=== PATIENT | female | born 1980 | race Caucasian/White ===

== ENCOUNTER 2022-06-01 10:49 | Emergency (ER) | payer OTHER ==
[~2022-06-01] VITALS: Ht 170.2 cm; Wt 81.8 kg
[2022-06-01] VITALS (12 sets, daily range): BP systolic 92–119; BP diastolic 60–87
[2022-06-01 11:53] LABS: BASO% 0.3 % (0-3); EOS% 2.1 % (0-8); HEMOGLOBIN 14.1 g/dl (12.0-16.0); IMMATURE GRANULOCYTES 0.2 % (0.0-5.0); LYMPH% 24.3 % (15-41); MEAN CELL VOLUME 94.8 fL CALC (80.0-100.0); MEAN CORPUSCULAR HGB 30.4 pG CALC (26.0-32.0); MONO% 7.5 % (2-13); NEUT# 5.66 thou/uL (2.00-7.15); NEUT% 65.6 % (42-76); RED BLOOD COUNT 4.64 mill/uL (4.20-5.60); RED CELL DISTRI WIDTH 12.9 % (11.5-15.5)
[2022-06-01 12:02] LABS: ALBUMIN 4.3 g/dL (3.2-5.0); ALKALINE PHOSPHATASE 72 u/l (38-126); ANION GAP 17 (6-22 (CALC)); BILIRUBIN, TOTAL 0.5 mg/dL (0.02-1.3); BUN 11 mg/dL (7-17); BUN/CREATININE RATIO 21 (12-20 (CALC)); CARBON DIOXIDE 25 mmol/l (22-30); CHLORIDE 99 mmol/l (95-108); CREATININE 0.5 mg/dL (0.5-1.0); GFR FOR AFR.AMER. > 60 ML/MIN (>=60 (CALC)); GFR OTHER RACES > 60 ML/MIN (>=60 (CALC)); LIPASE 48 u/l (23-300); POTASSIUM 3.3 mmol/l (3.5-5.1); SGOT/AST 33 u/l (14-36); SODIUM 137 mmol/l (137-146); TOTAL PROTEIN 7.5 g/dL (6.3-8.2)
[2022-06-01 15:34] LABS: URINE BILIRUBIN - DIPSTICK NEGATIVE (NEGATIVE); URINE BLOOD DIPSTICK LARGE (NEGATIVE); URINE COLOR YELLOW; URINE GLUCOSE - DIPSTICK NEGATIVE (NEGATIVE); URINE KETONE NEGATIVE (NEGATIVE); URINE LEUK ESTERASE NEGATIVE (NEGATIVE); URINE PROTEIN - DIPSTICK NEGATIVE (NEG-TRACE); URINE SPECIFIC GRAVITY 1.015; URINE UROBILINOGEN - DIPSTICK 0.2 E.U./dL (0.2)
[2022-06-01 15:36] LABS: URINE NITRITE - DIPSTICK NEGATIVE (Negative)
[2022-06-01 15:42] LABS: URINE SQUAMOUS EPITHELIAL CELL FEW EPI/hpf (0-FEW); URINE WBC 0-2 WBC/hpf (0-5)
[2022-06-01] MEDS ORDERED: METRONIDAZOLE500 MG PO (16:56)
--- NOTE | 2022-06-03 13:05 | NUR ---
Attempted to contact patient by phone. No answer, left message to return call. No address or additional contacts on file.
== END 2022-06-01 18:50 | disposition home or self-care (01) ==
LOC: ED 10:49
PROVIDERS: Nurse Practitioner
DX: N76.0 Acute vaginitis (principal); T19.2XXA Foreign body in vulva and vagina, initial encounter; F17.210 Nicotine dependence, cigarettes, uncomplicated; X58.XXXA Exposure to other specified factors, initial encounter; R82.5 Elevated urine levels of drugs, medicaments and biological substances

== ENCOUNTER 2022-08-11 07:45 | Emergency (ER) | payer OTHER ==
[~2022-08-11] VITALS: Ht 170.2 cm; Wt 77.0 kg
[~2022-08-11 07:45] MED LIST: METRONIDAZOLE500 MG PO
[2022-08-11 08:23] VITALS: BP 143/98
[2022-08-11 08:30] VITALS: BP 130/89
[2022-08-11] MEDS ORDERED: SUBOXONE1 MI1 SL (08:40)
[2022-08-11] MEDS ORDERED: XANAX2 MG PO (08:41)
[2022-08-11 08:45] VITALS: BP 127/82
[2022-08-11 09:00] VITALS: BP 126/82
[2022-08-11 09:16] VITALS: BP 151/103
[2022-08-11] MEDS ORDERED: CLINDAMYCIN300 M1 PO (09:16)
[2022-08-11] MEDS ORDERED: ALLERGY RELF10 M3 PO (09:16)
[2022-08-11 09:29] VITALS: BP 150/97
== END 2022-08-11 09:37 | disposition home or self-care (01) ==
LOC: ED 07:45
DX: L03.317 Cellulitis of buttock (principal); F17.200 Nicotine dependence, unspecified, uncomplicated

== ENCOUNTER 2023-09-08 09:27 | Emergency (ER) | payer OTHER ==
[~2023-09-08] VITALS: Ht 170.2 cm; Wt 86.0 kg
[~2023-09-08 09:27] MED LIST changes: +ALLERGY RELF10 M3 PO; +CLINDAMYCIN300 M1 PO; +SUBOXONE1 MI1 SL; +XANAX2 MG PO
[2023-09-08 09:45] VITALS: BP 126/93
[2023-09-08 10:00] VITALS: BP 127/85
[2023-09-08 10:15] VITALS: BP 124/81
[2023-09-08 10:17] LABS: URINE BLOOD DIPSTICK Trace-intact (NEGATIVE); URINE COLOR Dark yellow; URINE GLUCOSE - DIPSTICK Negative (NEGATIVE); URINE KETONE Negative (NEGATIVE); URINE LEUK ESTERASE Negative (NEGATIVE); URINE NITRITE - DIPSTICK Positive (Negative); URINE PH 5.5 (4.5-8.0); URINE PROTEIN - DIPSTICK Trace mg/dL (NEG-TRACE); URINE SPECIFIC GRAVITY >=1.030; URINE UROBILINOGEN - DIPSTICK 0.2 E.U./dL (0.2)
[2023-09-08 10:20] LABS: URINE BACTERIA MANY hpf
[2023-09-08 10:21] LABS: URINE CALCIUM OXALATE CRYSTALS FEW lpf
[2023-09-08 10:30] VITALS: BP 120/78
[2023-09-08 10:45] VITALS: BP 118/79
[2023-09-08] MEDS ORDERED: METRONIDAZOLE500 MG PO (10:46)
[2023-09-08 10:53] VITALS: BP 118/79
[2023-09-10] MEDS ORDERED: KEFLEX500 MG PO (13:46)
--- NOTE | 2023-09-10 13:46 | NUR ---
ATTEMPTED TO CONTACT PATIENT REGARDING CULTURE RESULTS. NEW RX SENT TO [facility] FOR KEFLEX 500MG PO TID. WILL ATTEMPT TO CONTACT PATIENT AGAIN 09/11/23.
== END 2023-09-08 11:02 | disposition home or self-care (01) | DRG 759 ==
LOC: ED 09:27
PROVIDERS: Family Medicine
DX: N76.0 Acute vaginitis (principal); B96.1 Klebsiella pneumoniae [K. pneumoniae] as the cause of diseases classified elsewhere; R82.71 Bacteriuria; F17.210 Nicotine dependence, cigarettes, uncomplicated

== ENCOUNTER 2023-11-13 12:14 | Emergency (ER) | payer OTHER ==
[~2023-11-13] VITALS: Ht 170.2 cm; Wt 83.9 kg
[~2023-11-13 12:14] MED LIST changes: +KEFLEX500 MG PO
[2023-11-13 13:01] VITALS: BP 124/82
[2023-11-13 13:16] VITALS: BP 109/65
[2023-11-13] MEDS ORDERED: DOXY-CAPS100 MG PO (13:28)
[2023-11-13] MEDS ORDERED: CEPHALEXIN500 M1 PO (13:28)
[2023-11-13 13:30] VITALS: BP 116/69
[2023-11-13 13:45] VITALS: BP 109/65
[2023-11-14] MEDS ORDERED: CEPHALEXIN500 M1 PO (12:36)
[2023-11-14] MEDS ORDERED: DOXY-CAPS100 MG PO (12:36)
== END 2023-11-13 13:50 | disposition home or self-care (01) | DRG 759 ==
LOC: ED 12:14
DX: N76.2 Acute vulvitis (principal); Z72.0 Tobacco use